=== PATIENT | male | born 1995 | race Caucasian/White ===

== ENCOUNTER 2020-03-31 09:31 | Emergency (ER) | payer SELFPAY ==
[~2020-03-31] VITALS: Ht 167.6 cm; Wt 68.0 kg
[2020-03-31 09:34] VITALS: BP 118/79
[2020-03-31] MEDS ORDERED: LIDOCAINE 1% HCL (LOCAL ANESTH.) INJ 20ML MDV IJ ONE (10:00)
== END 2020-03-31 11:31 | disposition home or self-care (01) ==
LOC: ER 09:31
DX: S41.012A Laceration without foreign body of left shoulder, initial encounter (principal); W45.8XXA Other foreign body or object entering through skin, initial encounter; Y93.89 Activity, other specified; Y92.89 Other specified places as the place of occurrence of the external cause; Y99.8 Other external cause status
CPT/HCPCS: 12002; 73030; 99283; J2001

== ENCOUNTER 2020-04-25 09:45 | Emergency (ER) | payer SELFPAY ==
[~2020-04-25] VITALS: Ht 167.6 cm; Wt 68.0 kg
[2020-04-25 10:31] VITALS: BP 126/70
== END 2020-04-25 10:38 | disposition home or self-care (01) ==
LOC: ER 09:45
DX: S41.012D Laceration without foreign body of left shoulder, subsequent encounter (principal); X58.XXXD Exposure to other specified factors, subsequent encounter